=== PATIENT | male | born 1980 | race Caucasian/White ===

== ENCOUNTER 2017-03-06 15:02 | Emergency (ER) | payer OTHER ==
[~2017-03-06] VITALS: Ht 182.9 cm; Wt 100.0 kg
[2017-03-06] MEDS ORDERED: ZOFRAN ODT4 MG PO (17:57)
[2017-03-06] MEDS ORDERED: FIORICET,ESG1 TABLET PO (17:57)
[2017-03-06 18:11] VITALS: BP 114/82
== END 2017-03-06 18:15 | disposition home or self-care (01) ==
LOC: EME 15:02
DX: G43.909 Migraine, unspecified, not intractable, without status migrainosus (principal); K02.9 Dental caries, unspecified; S02.5XXA Fracture of tooth (traumatic), initial encounter for closed fracture
CPT/HCPCS: 70450; 99281; 99284; J1885